=== PATIENT | male | born 1940 | race Caucasian/White ===

== ENCOUNTER 2017-07-12 07:36 | Day surgery (SDC) | payer MEDICARE ==
[~2017-07-12] VITALS: Ht 188 cm; Wt 68.2 kg
[2017-07-12] MEDS ORDERED: SODIUM CHLORIDE 0.9% 1,000 ML IV SCH (08:25)
[2017-07-12 08:26] VITALS: BP 183/105
[2017-07-12] MEDS ORDERED: LIDOCAINE 1%, 20ML ONE (08:38)
[2017-07-12 08:48] VITALS: BP 175/99
[2017-07-12] MEDS ORDERED: VISIPAQUE 270 MG/ML, 50ML BOTTLE ONE (09:00)
[2017-07-12] MEDS ORDERED: FENTANYL PF 100 MCG/2ML ONE (09:14)
[2017-07-12] MEDS ORDERED: NALOXONE 1 MG/ML, 2ML ONE (09:14)
[2017-07-12] MEDS ORDERED: FLUMAZENIL 0.1 MG/1 ML, 5ML ONE (09:14)
[2017-07-12] MEDS ORDERED: MIDAZOLAM 1 MG/ML, 2ML ONE ×2 (09:14)
[2017-07-12] MEDS ORDERED: CEFAZOLIN PMX 1GM/50ML 50 ML ONE (09:17)
== END 2017-07-12 11:35 ==
LOC: OUT 07:36
PROVIDERS: ATTEND Urology
DX: N35.9 Urethral stricture, unspecified (principal); N31.9 Neuromuscular dysfunction of bladder, unspecified; E78.5 Hyperlipidemia, unspecified; I10 Essential (primary) hypertension; N40.0 Benign prostatic hyperplasia without lower urinary tract symptoms; G20 Parkinson's disease; Z85.46 Personal history of malignant neoplasm of prostate; Z98.890 Other specified postprocedural states
CPT/HCPCS: 51102; 75989; 76942; 99156; 99157; C1725; C1769; J0690; J2250; J3010; J3490; J7030; Q9966; J2310